=== PATIENT | female | born 1990 | race Caucasian/White ===

== ENCOUNTER → 2017-03-28 | Outpatient (CLI) | payer OTHER ==
[~2017-03-28] MED LIST: DULERA1 AR1 IH; NO HOME MEDICATIONS; PERCOCET 325 MG1 TA2 PO
== END ==
LOC: COL.PUL 12-11 11:20
DX: R06.02 Shortness of breath (principal)

== ENCOUNTER → 2019-08-21 | Outpatient (CLI) | payer OTHER | LOC: MC.RAD 08-19 09:30 | DX: N60.01 Solitary cyst of right breast (principal) ==